=== PATIENT | female | born 1985 | race Caucasian/White ===

== ENCOUNTER 2023-05-07 00:43 | Emergency (ER) | payer BC, SELFPAY ==
--- NOTE | 2023-05-07 | ECG_ITS ---
Test Reason : PALPITATIONS Blood Pressure : / mmHG Vent. Rate : 104 BPM Atrial Rate : 104 BPM P-R Int : 142 ms QRS Dur : 098 ms QT Int : 358 ms P-R-T Axes : 065 042 041 degrees QTc Int : 470 ms Sinus tachycardia RSR' or QR pattern in V1 suggests right ventricular conduction delay Abnormal ECG No previous ECGs available Referred By: Enrique Henriquez Electronically Signed By:MABEL ESQUIVEL
[2023-05-07 00:51] VITALS: BP 146/113; BP 156/110; PULSE 115; PULSE 119; RESP 18; TEMP 36.6; O2SAT 98; BMI 22.1
--- NOTE | 2023-05-07 01:04 | MHC.EDTECH ---
pt changed over with security. belonging in pod locker 8
[2023-05-07 01:19] LABS: Basophils Percent Auto 0.4 % (0-2); Eosinophils Absolute Auto 0.1 X10*3/uL (0.0-0.4); Eosinophils Percent Auto 1.1 % (0-4); Hematocrit 35.3 % (37.0-47.0); Hemoglobin 12.3 g/dl (12.0-16.0); Imm Gran Abs Auto 0.01 X10*3/uL (0.00-0.03); Imm Gran Pct Auto 0.1 % (0.0-0.4); Lymphocytes Absolute Auto 2.8 X10*3/uL (1.2-4.9); Lymphocytes Percent Auto 39.2 % (20-40); MANUAL DIFF FLAG NO; Mean Corpuscular HGB Conc 34.8 g/dl (31.0-35.0); Mean Corpuscular Hemoglobin 31.6 pg (27.0-33.0); Mean Corpuscular Volume 90.7 fL (80.0-98.0); Monocytes Absolute Auto 0.7 X10*3/uL (0.1-1.2); Monocytes Percent Auto 9.3 % (2-11); Neutrophils Absolute Auto 3.5 x10*3/uL (2.0-8.3); Neutrophils Percent Auto 49.9 % (45-73); Platelet Count 237 X10*3/uL (160-400); Red Blood Count 3.89 X10*6/uL (4.20-5.50); Red Cell Distribution Width 12.2 % (11.0-16.0); White Blood Count 7.1 X10*3/uL (4.8-10.8)
[2023-05-07] MEDS: Nicotine 21 MG PATCH.TD24 TRANSDERMA (01:20)
[2023-05-07 01:23] LABS: UPreg QC Valid YES; Urine Pregnancy NEGATIVE (NEGATIVE)
[2023-05-07 01:25] LABS: Appearance Urine Clear; Color Urine Yellow; Glucose Urine UA Negative (Negative); Leukocyte Esterase Urine Negative (Negative); Nitrite Urine Negative (Negative); Specific Gravity - Urine <= 1.005 (1.005-1.025); Urine Blood Negative (Negative); Urine Ketones Negative (Negative); Urine Protein Negative (Neg-Trace)
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
[2023-05-07 01:30] LABS: Amphetamine Screen Urine Not Detected (Not Detect); Bacteria Urine None Seen (None Seen); Barbiturates, Urine Not Detected (Not Detect); Benzodiazepines Screen Urine Not Detected (Not Detect); Cannabinoid Screen Urine Not Detected (Not Detect); Cocaine Screen Urine Not Detected (Not Detect); Fentanyl, urine Not Detected (Not Detect); Hyaline Casts Urine 0-2 /LPF (0-2); Opiate Screen Urine Not Detected (Not Detect); Phencyclidine Screen Urine Not Detected (Not Detect); RBC Urine 0-2 /HPF (0-2); Squamous Epithelial Cell Urine 0-2 /HPF (0-2); WBC Urine 0-5 /HPF (0-5)
[2023-05-07 01:34] LABS: COVID-19 Test Negative (Negative); IDNOW Serial# BCCEAD1C
[2023-05-07 01:38] LABS: Alanine Aminotransferase 65 U/L (0-31); Albumin Level 4.4 g/dL (3.5-5.0); Alkaline Phosphatase 58 U/L (39-117); Anion Gap 15 (12-20); Aspartate Amino Transferase 89 U/L (5-31); Bilirubin Total 0.4 mg/dL (0.0-1.0); Blood Urea Nitrogen 5 mg/dL (9-16); Carbon Dioxide 22 mmol/L (22-29); Chloride 100 mmol/L (96-108); Creatinine Clr Calc Pharmacy 84.6; Estimated Glomerular Filt Rate > 60; Ethanol 318 mg/dL; Glucose Random 99 mg/dL (60-115); Potassium 3.2 mmol/L (3.3-5.1); Sodium 134 mmol/L (135-145)
[2023-05-07] MEDS: Potassium Chloride ER 20 MEQ TAB.ER.PRT 40 MEQ PO (02:12)
[2023-05-07 03:58] VITALS: BP 145/89; PULSE 96; RESP 16; O2SAT 98
== END 2023-05-07 05:02 | disposition home or self-care (01) ==
PROVIDERS: Physician Assistant; Emergency Provider Student in an Organized Health Care Education/Training Program
DX: F10.10 Alcohol abuse, uncomplicated (principal); R00.2 Palpitations; R00.0 Tachycardia, unspecified; Z20.822 Contact with and (suspected) exposure to COVID-19; Z20.828 Contact with and (suspected) exposure to other viral communicable diseases; Z79.899 Other long term (current) drug therapy; Y90.8 Blood alcohol level of 240 mg/100 ml or more
CPT/HCPCS: 80053; 80307; 81001; 81025; 85025; 87635; 93005; 99283; 99285

== ENCOUNTER 2023-10-16 18:27 | Emergency (ER) | payer OTHER, SELFPAY ==
[2023-10-16 18:32] VITALS: BP 137/81; PULSE 97; O2SAT 99
[2023-10-16 18:46] VITALS: BP 140/97; PULSE 98; RESP 16; TEMP 36.3; O2SAT 96; BMI 20.5
--- NOTE | 2023-10-16 18:49 | PC.NURSE ---
patient changed into hospital attire, aware of plans for blood work. resting quietly in room at this time. belongings in locker 2
--- NOTE | 2023-10-16 18:54 | PC.NURSE ---
patient appears to be at rest presently respirations are even and unlabored patient appears in no distress.
[2023-10-16 18:59] LABS: MANUAL DIFF FLAG NO
[2023-10-16 19:05] LABS: Basophils Percent Auto 0.3 % (0-2); Eosinophils Percent Auto 0.8 % (0-4); Hematocrit 37.4 % (37.0-47.0); Hemoglobin 13.2 g/dl (12.0-16.0); Imm Gran Abs Auto 0.01 X10*3/uL (0.00-0.03); Imm Gran Pct Auto 0.3 % (0.0-0.4); Lymphocytes Absolute Auto 1.6 X10*3/uL (1.2-4.9); Mean Corpuscular HGB Conc 35.3 g/dl (31.0-35.0); Mean Corpuscular Hemoglobin 31.9 pg (27.0-33.0); Mean Corpuscular Volume 90.3 fL (80.0-98.0); Mean Platelet Volume 8.3 fL (9.4-12.3); Monocytes Absolute Auto 0.6 X10*3/uL (0.1-1.2); Monocytes Percent Auto 14.9 % (2-11); Neutrophils Absolute Auto 1.7 x10*3/uL (2.0-8.3); Neutrophils Percent Auto 42.7 % (45-73); Platelet Count 164 X10*3/uL (160-400); Red Blood Count 4.14 X10*6/uL (4.20-5.50); White Blood Count 3.9 X10*3/uL (4.8-10.8)
[2023-10-16 19:07] LABS: UPreg QC Valid YES; Urine Pregnancy NEGATIVE (NEGATIVE)
[2023-10-16 19:10] LABS: Appearance Urine Clear; Color Urine Yellow; Glucose Urine UA Negative (Negative); Leukocyte Esterase Urine Negative (Negative); Nitrite Urine Negative (Negative); PH 5.5 (5.0-9.0); Specific Gravity - Urine <= 1.005 (1.005-1.025); UMIC TRIGGER UACC YES; Urine Blood Trace (Negative); Urine Ketones Negative (Negative); Urine Protein Negative (Neg-Trace)
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
[2023-10-16 19:15] LABS: Amphetamine Screen Urine Not Detected (Not Detect); Bacteria Urine None Seen (None Seen); Barbiturates, Urine Not Detected (Not Detect); Benzodiazepines Screen Urine POSITIVE (Not Detect); Cannabinoid Screen Urine Not Detected (Not Detect); Cocaine Screen Urine Not Detected (Not Detect); Fentanyl, urine Not Detected (Not Detect); Hyaline Casts Urine 0-2 /LPF (0-2); Opiate Screen Urine Not Detected (Not Detect); Phencyclidine Screen Urine Not Detected (Not Detect); RBC Urine 0-2 /HPF (0-2); WBC Urine 0-5 /HPF (0-5)
[2023-10-16 19:16] LABS: Alanine Aminotransferase 83 U/L (0-31); Albumin Level 4.4 g/dL (3.5-5.0); Alkaline Phosphatase 73 U/L (39-117); Anion Gap 18 (12-20); Aspartate Amino Transferase 127 U/L (5-31); Bilirubin Total 0.5 mg/dL (0.0-1.0); Blood Urea Nitrogen < 3 mg/dL (9-16); Calcium 9.1 mg/dL (8.4-10.2); Carbon Dioxide 23 mmol/L (22-29); Chloride 97 mmol/L (96-108); Creatinine Clr Calc Pharmacy 93.7; Estimated Glomerular Filt Rate > 60; Ethanol 334 mg/dL; Glucose Random 83 mg/dL (60-115); Potassium 3.4 mmol/L (3.3-5.1); Sodium 135 mmol/L (135-145); Total Protein 7.4 g/dL (6.5-8.0)
[2023-10-16] MEDS: Nicotine 14 MG PATCH.TD24 TRANSDERMA (19:54)
--- NOTE | 2023-10-16 19:57 | PC.NURSE ---
client requested nicotine replacement patch provided. patient expressed desire to dc, clinician made aware of clients wishes, who has indicated to provider of clients desire to dc.
--- NOTE | 2023-10-16 21:17 | MHC.CARE ---
Pt was brought into [facility] via ambulance due to her calling 911 because she was intoxicated. Pt did not present with any safety concerns at this time. She was able to contract for safety and she called her Zachery for a safe ride home. T/W spoke with Zachery and asked about safety concerns and he stated that he has none. Zachery stated that she would never intentionally hurt herself or anyone else. Zachery stated that the pt is a regular heavy drinker and she does this every week. 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 T/W asked about prescribed medications and he stated that she was prescribed the benzo's at one point in her life . He does not know how old they are. The pt and her Zachery have three children 11, 9, 7. There is no DCF involvement in their lives at this time. It was agreed that the pt could be discharged to her as there are no safety concerns at this time.
== END 2023-10-16 22:07 | disposition home or self-care (01) ==
PROVIDERS: Emergency Provider Emergency Medicine
DX: F41.1 Generalized anxiety disorder (principal); F43.0 Acute stress reaction; F10.129 Alcohol abuse with intoxication, unspecified; Y90.8 Blood alcohol level of 240 mg/100 ml or more; Z79.899 Other long term (current) drug therapy
CPT/HCPCS: 36415; 80053; 80307; 81001; 81025; 85025; 99283

== ENCOUNTER 2025-04-05 21:16 | Inpatient (IN) | payer SELFPAY ==
--- NOTE | 2025-04-05 | ECG_ITS ---
Test Reason : seizure, etoh withdrawal Blood Pressure : */* mmHG Vent. Rate : 135 BPM Atrial Rate : 138 BPM P-R Int : 128 ms QRS Dur : 84 ms QT Int : 378 ms P-R-T Axes : 70 60 65 degrees QTcB Int : 567 ms Artifact in tracing Normal sinus rhythm Cannot rule out Anterior infarct , age undetermined Abnormal ECG When compared with ECG of 07-May-2023 01:18, No significant changes seen Referred By: Generic ED Physician Electronically Signed By: TREVON PEREZ
--- NOTE | ~2025-04-05 | CT_ITS ---
CLINICAL HISTORY: facial trauma, EtOH CT maxillofacial without contrast Comparison: None provided Findings: No acute fractures. Temporomandibular joints are intact. Minimal mucosal thickening of the right maxillary sinus. Other paranasal sinuses are clear. Orbits normal. Visualized intracranial contents are within normal limits. No foreign bodies. Scalp swelling over the midline forehead. IMPRESSION: No acute fracture deformity. This document has been electronically signed by: Everardo Soliz MD on 04/05/2025 23:42:14
--- NOTE | ~2025-04-05 | CT_ITS ---
CLINICAL HISTORY: facial trauma CT head without contrast Comparison: None provided Findings: No intra-axial mass, midline shift, hydrocephalus, or acute hemorrhage. No significant atrophy-like change or white matter disease. The visualized paranasal sinuses and mastoid air cells are normal. The orbits are unremarkable. Midline forehead scalp swelling. No skull fracture. IMPRESSION: 1. No acute intracranial findings. This document has been electronically signed by: Everardo Soliz MD on 04/05/2025 23:44:08
--- NOTE | ~2025-04-05 | CT_ITS ---
CLINICAL HISTORY: facial trauma, EtOH CT cervical spine without contrast Comparison: None provided Findings: Vertebral alignment is within normal limits. Mild degenerative change. Facet arthrosis on the left at C2-3. No acute fractures or dislocations. No acute findings on limited view of the intracranial contents. Soft tissues of the neck are normal. Lung apices are clear. Cervical straightening which may be due to patient positioning or muscular spasm. IMPRESSION: No acute cervical spine fracture. This document has been electronically signed by: Everardo Soliz MD on 04/05/2025 23:41:41
[2025-04-05 21:19] VITALS: BP 148/94; PULSE 122; O2SAT 98; BMI 23.0
--- NOTE | 2025-04-05 22:08 | ED.GENADULT ---
HPI - General Adult General Chief complaint: Seizure Stated complaint: seizure Time Seen by Provider: 04/05/25 21:40 Source: patient, EMS, RN notes reviewed and old records reviewed Mode of arrival: EMS Limitations: altered mental status History of Present Illness ED Provider: Dr. Denia Wetzel HPI narrative: 31-year-old female with history of alcohol use disorder presenting after an apparent seizure that occurred at home immediately prior to arrival. EMS reports they were called to the home by the patient's . Evidently her children heard a thud and found her seizing on the ground. Seizure reportedly lasted a couple of minutes. She has a contusion to the forehead and had been vomiting prior to the seizure. reports alcohol use today. Patient is unable to give any information secondary to her clinical condition. She has been medicated with Versed after she became agitated saying that she thought she might have another seizure. History of daily alcohol use. Unable to obtain further information at this time. Related Data Allergies Allergy/AdvReac Type Severity Reaction Status Date / Time No Known Allergies Allergy Verified 04/05/25 21:32 Review of Systems Review of Systems: Yes Unobtainable due to mental status [facility] Past Medical History [facility] Narrative: Daily alcohol use Source: unable to obtain, old records reviewed and nursing notes reviewed Social History Social History Alcohol intake: current Alcohol intake frequency: 3 or more drinks per day Alcohol type: beer, wine and hard liquor Smoked in Last 30 Days: Yes Use of substances other than those prescribed or required for medical reasons: No Do you have a plan to hurt others: No Plan Physical Exam ED Exam Exam: GENERAL: Appears intoxicated, GCS 13, eyes open to voice, slurred speech, no acute distress. SKIN: Normal skin color for ethnicity, warm, dry, no rashes noted. HEENT: Normocephalic, forehead contusion, no bogginess to the scalp, no raccoon's eyes or del cid signs, superficial abrasion overlying the contusion, nasal contusion, no blood in the nares, no stridor, posterior oropharynx nonerythematous, dentition intact, EOMI, pupils are 4 mm bilaterally, reactive to light. NECK: Soft, supple, no step-offs, no deformities, no lymphadenopathy. CHEST: Heart regular tachycardia, no murmurs, symmetric chest rise and fall. PULMONARY: Clear to auscultation bilaterally, diminished at the bases, no labored breathing, no wheezes/rhales/rhonchi. ABDOMINAL: Soft, nondistended, positive bowel sounds in all quadrants. : Deferred. MUSCULOSKELETAL: Normal tone, full range of motion, no deformities, no peripheral edema. NEURO: GCS 13, eyes open to voice, slightly slurred speech, CN II through XII intact, equal strength and sensation bilateral upper and lower extremities, no focal neurologic deficits. PSYCHIATRIC: Flat affect, poor eye contact. Vital Signs: Vital Signs - 24 hr 04/05/25 23:31 Pulse Rate 116 H Blood Pressure 124/85 BMI result Body Mass Index 23.0 Medications Administered Generic Name Dose Route Start Last Admin Trade Name Freq PRN Reason Stop Dose Admin Magnesium Sulfate 2 gm in 50 mls @ 25 mls/hr 04/05/25 23:34 04/05/25 23:42 Magnesium Sulfate/H2o IV 04/06/25 01:33 25 mls/hr ONCE ONE Administration Discontinued Medications Generic Name Dose Route Start Last Admin Trade Name Freq PRN Reason Stop Dose Admin Midazolam HCl 5 mg 04/05/25 21:42 04/05/25 21:45 Midazolam Hcl 5 Mg/Ml Vial IVPUSH 04/05/25 21:43 5 mg ONCE ONE Administration Medical Decision Making Medical Decision Making [facility] Narrative: Patient presents today with a chief complaint of altered mental status. Differential diagnosis for AMS is incredibly broad and includes postictal state/seizure, infection, intracranial process such as hemorrhage, stroke or mass, electrolyte abnormality, hypercarbia, hypoxia, toxic encephalopathy, among many others. Broad-based workup was initiated to further evaluate the etiology of patient's symptoms based on the above exam and history. 1:00 AM 04/06/2025 (Dr. Denia Wetzel, Len.Suleiman.) patient reporting to RN that she does in fact want to seek treatment for alcohol detox. Sodium level, magnesium level, seizure activity today, we will initiate phenobarbital protocol, admit for further care and evaluation, alcohol detox hyponatremia and hypomagnesemia. Differential Diagnosis Differential Diagnoses: The differential diagnosis associated with the presentation includes (as above) Admission/Observation Consideration of admission/observation: Escalation of care including admission/observation considered Consult Healthcare Provider Management of the patient was discussed with: Hospitalist Lab Data MDM Lab Attestation statement: I reviewed the patient's lab results. 04/05/25 22:39 04/05/25 22:39 Labs: Lab Results 04/05/25 04/05/25 04/05/25 Range/Units 22:39 22:45 23:33 WBC 7.7 (4.8-10.8) X10*3/uL RBC 3.83 L (4.20-5.50) X10*6/uL Hgb 10.5 L D (12.0-16.0) g/dl Hct 28.6 L D (37.0-47.0) % MCV 74.7 L (80.0-98.0) fL MCH 27.4 (27.0-33.0) pg MCHC 36.7 H (31.0-35.0) g/dl RDW 15.4 (11.0-16.0) % Plt Count 122 L D (160-400) X10*3/uL MPV 8.4 L (9.4-12.3) fL Immature Gran % (Auto) 0.5 H (0.0-0.4) % Neut % (Auto) 81.2 H (45-73) % Lymph % (Auto) 11.8 L (20-40) % [place] % (Auto) 6.1 (2-11) % Eos % (Auto) 0.3 (0-4) % Baso % (Auto) 0.1 (0-2) % Lymph # (Auto) 0.9 L (1.2-4.9) X10*3/uL [place] # (Auto) 0.5 (0.1-1.2) X10*3/uL Eos # (Auto) 0.0 (0.0-0.4) X10*3/uL Baso # (Auto) 0.0 (0.0-0.2) X10*3/uL Abs Immat Gran (auto) 0.04 H (0.00-0.03) X10*3/uL Absolute Neuts (auto) 6.3 (2.0-8.3) x10*3/uL Absolute Nucleated RBC 0.000 (0.0-0.012) X10*3/uL Nucleated RBC % (auto) 0.0 (0.0-0.2) /100WBC VBG pH 7.48 H (7.32-7.43) VBG pCO2 36 mmHg VBG pO2 63 mmHg VBG HCO3 27 H (22-26) mmol/L VBG O2 Saturation 89.0 % VBG Base Excess 4.3 mmol/L Sodium 120 L* (135-145) mmol/L Potassium 3.2 L (3.3-5.1) mmol/L Chloride 87 L (96-108) mmol/L Carbon Dioxide 22 (22-29) mmol/L Anion Gap 14 (12-20) BUN 3 L (9-16) mg/dL Creatinine 0.59 (0.5-1.4) mg/dL Estim Creat Clear Calc 106.9 Estimated GFR > 60 Random Glucose 107 (60-115) mg/dL Calcium 8.3 L D (8.4-10.2) mg/dL Magnesium 1.4 L* (1.6-2.6) mg/dL Total Bilirubin 1.4 H (0.0-1.0) mg/dL AST 33 H (5-31) U/L ALT 19 (0-31) U/L Alkaline Phosphatase 56 (39-117) U/L Ammonia 25 (13-55) umol/L Total Protein 6.5 (6.5-8.0) g/dL Albumin 4.3 (3.5-5.0) g/dL Beta HCG, Quant < 2 mIU/mL Salicylates < 5.0 L (15-30) mg/dL Urine Opiates Screen Not Detected (Not Detect) Ur Buprenorphine Scrn Not Detected (Not Detect) ng/mL Ur Oxycodone Screen Not Detected (Not Detect) ng/mL Urine Methadone Screen Not Detected (Not Detect) ng/mL Urine Fentanyl Screen Not Detected (Not Detect) Acetaminophen < 3 (<30) mcg/mL Ur Barbiturates Screen Not Detected (Not Detect) Ur Phencyclidine Scrn Not Detected (Not Detect) Ur Amphetamines Screen Not Detected (Not Detect) U Benzodiazepines Scrn POSITIVE H (Not Detect) Urine Cocaine Screen Not Detected (Not Detect) U Marijuana (THC) Screen Not Detected (Not Detect) Ethyl Alcohol < 10 mg/dL Independent Interpretation I performed an independent interpretation of an: EKG Interpretation: My independent interpretation of the ECG reveals normal sinus tachycardia with rate of 130, normal axis, QTC 567, no ST elevations or depressions to suggest ischemic changes, artifact in V2, aside from rate relatively unchanged from previous on 05/07/2023 Radiology Impression Discussion of test interpretation with radiology: I have reviewed the radiologist's reading. Radiologist Impression: CT head without contrast Comparison: None provided Findings: No intra-axial mass, midline shift, hydrocephalus, or acute hemorrhage. No significant atrophy-like change or white matter disease. The visualized paranasal sinuses and mastoid air cells are normal. The orbits are unremarkable. Midline forehead scalp swelling. No skull fracture. IMPRESSION: 1. No acute intracranial findings. This document has been electronically signed by: Everardo Soliz MD on 04/05/2025 23:44:08 CT maxillofacial without contrast Comparison: None provided Findings: No acute fractures. Temporomandibular joints are intact. Minimal mucosal thickening of the right maxillary sinus. Other paranasal sinuses are clear. Orbits normal. Visualized intracranial contents are within normal limits. No foreign bodies. Scalp swelling over the midline forehead. IMPRESSION: No acute fracture deformity. This document has been electronically signed by: Everardo Soliz MD on 04/05/2025 23:42:14 CT cervical spine without contrast Comparison: None provided Findings: Vertebral alignment is within normal limits. Mild degenerative change. Facet arthrosis on the left at C2-3. No acute fractures or dislocations. No acute findings on limited view of the intracranial contents. Soft tissues of the neck are normal. Lung apices are clear. Cervical straightening which may be due to patient positioning or muscular spasm. IMPRESSION: No acute cervical spine fracture. This document has been electronically signed by: Everardo Soliz MD on 04/05/2025 23:41:41 Independent Historian Clinical information obtained from an independent historian. History obtained from or confirmed by: EMS Chronic Conditions Patient?s care impacted by: Other (alcoholism) Social Determinants Patient?s care significantly limited by Social Determinants of Health including: Alcoholism and drug addiction in family and Problems related to primary support group Critical Care Time Critical Care Time Critical Care Time: Yes Total Critical Care Time: 39 Attestation: CRITICAL CARE TIME: 39 minutes of critical care time was spent in direct patient care at the bedside or in the immediate area with this patient. Critical care was necessary to treat or prevent imminent or life-threatening deterioration of the following conditions hyponatremia, hypomagnesemia, alcohol withdrawal due to alcohol use disorder. This patient is high risk for decompensation and/or . This time was spent assessing and managing the patient, interpreting labs and imaging, coordinating care with other medical providers, gathering history from either the patient, their representatives, EMS or chart review, and discussing management with admitting team. Discharge Plan Discharge Clinical Impression: Alcohol withdrawal seizure, Hyponatremia, Hypomagnesemia Patient Disposition: Admitted As Inpatient Print Language: Bulgarian
[2025-04-05 22:44] LABS: MANUAL DIFF FLAG NO
[2025-04-05 22:45] LABS: Hematocrit 28.6 % (37.0-47.0); Hemoglobin 10.5 g/dl (12.0-16.0); Imm Gran Abs Auto 0.04 X10*3/uL (0.00-0.03); Imm Gran Pct Auto 0.5 % (0.0-0.4); Lymphocytes Absolute Auto 0.9 X10*3/uL (1.2-4.9); Mean Corpuscular HGB Conc 36.7 g/dl (31.0-35.0); Mean Corpuscular Hemoglobin 27.4 pg (27.0-33.0); Mean Corpuscular Volume 74.7 fL (80.0-98.0); NRBC Abs Auto 0.000 X10*3/uL (0.0-0.012); NRBC Pct Auto 0.0 /100WBC (0.0-0.2); Platelet Count 122 X10*3/uL (160-400); Red Blood Count 3.83 X10*6/uL (4.20-5.50); White Blood Count 7.7 X10*3/uL (4.8-10.8)
[2025-04-05 22:49] LABS: VBG HCO3 27 mmol/L (22-26); VBG O2 % Saturation 89.0 %
[2025-04-05 22:50] LABS: Venous Blood Gas Refer to POC result
[2025-04-05 22:54] LABS: Ammonia 25 umol/L (13-55)
[2025-04-05 23:10] LABS: Acetaminophen LAB < 3 mcg/mL (<30); Salicylate < 5.0 mg/dL (15-30)
[2025-04-05 23:13] LABS: Alanine Aminotransferase 19 U/L (0-31); Albumin Level 4.3 g/dL (3.5-5.0); Alkaline Phosphatase 56 U/L (39-117); Anion Gap 14 (12-20); Aspartate Amino Transferase 33 U/L (5-31); Blood Urea Nitrogen 3 mg/dL (9-16); Calcium 8.3 mg/dL (8.4-10.2); Carbon Dioxide 22 mmol/L (22-29); Chloride 87 mmol/L (96-108); Creatinine Clr Calc Pharmacy 106.9; Estimated Glomerular Filt Rate > 60; Magnesium 1.4 mg/dL (1.6-2.6); Potassium 3.2 mmol/L (3.3-5.1); Sodium 120 mmol/L (135-145); Total Protein 6.5 g/dL (6.5-8.0)
[2025-04-05 23:31] VITALS: BP 124/85; PULSE 116
[2025-04-05] MEDS: Magnesium Sulfate/H2O 2 GM/50 ML PIGGYBACK IV (23:42)
[2025-04-05 23:51] LABS: Cannabinoid Screen Urine Not Detected (Not Detect)
--- NOTE | 2025-04-06 01:12 | PM.IMHP ---
History of Present Illness Date of Service: 04/06/25 Chief Complaint: seizure 39-year-old female with a past medical history of anxiety, alcohol use disorder presented to the hospital with a chief complaint of seizure episode. Patient mentioned that she was at home and suddenly had a seizure and fell onto the floor hit her head. Witnessed by the family. Subsequently brought her to the hospital for further evaluation. Denies any tongue biting or urinary incontinence. Reports that she has been drinking alcohol on a daily basis and has been trying to cut down too slowly. It. Denies any headaches or blurry visions. Denies any neck pain or back pain. Denies any numbness tingling or focal weakness. Reports that she has been having nausea and vomiting over the past few days and has been having abdominal discomfort. But currently denies any abdominal pain at the time of my interview. Denies any urinary symptoms. Review of all other systems is negative except mentioned above ER course: Per ER team, patient exam was benign; musculoskeletal exam benign; patient initially came in with C-collar; CT head and CT C-spine showed no acute findings; on labs noted have sodium levels of 120. Patient mentating well. Patient is started on phenobarbital protocol. [facility] Social History Alcohol intake: current Alcohol intake frequency: 3 or more drinks per day Alcohol type: beer, wine and hard liquor Meds Allergies Allergy/AdvReac Type Severity Reaction Status Date / Time No Known Allergies Allergy Verified 04/05/25 21:32 Active Medications: Current Medications Magnesium Sulfate (Magnesium Sulfate/H2o) 2 gm in 50 mls @ 25 mls/hr IV ONCE ONE Stop: 04/06/25 01:33 Last Admin: 04/05/25 23:42 Dose: 25 mls/hr Pharmacy Consult (Consult Rx Etoh Phenob Im/Po) 1 each MISCELLANE ONCE PRN; Protocol PRN Reason: Consult order Physical Exam Vital Signs and Narrative: Vital Signs: Last Vital Signs Pulse 116 H 04/05/25 23:31 BP 124/85 04/05/25 23:31 BMI result Body Mass Index 23.0 Gen: Appears be in no acute distress HEENT: NCAT, Moist mucosa. Abrasions noted on the forehead secondary to the fall. Pulmonary: Vesicular breath sounds, fair air entry CVS: Normal S1-S2 Abdomen: BS+, Soft, Nontender Extremities: Warm well perfused Neuro: Alert and awake. Results Labs 04/05/25 22:39 04/05/25 22:39 Labs: Laboratory Results - last 24 hr 04/05/25 04/05/25 04/05/25 22:39 22:45 23:33 MCV 74.7 L MCH 27.4 MCHC 36.7 H RDW 15.4 Plt Count 122 L D MPV 8.4 L Immature Gran % (Auto) 0.5 H Neut % (Auto) 81.2 H Lymph % (Auto) 11.[address] [place] % (Auto) 6.1 Eos % (Auto) 0.3 Baso % (Auto) 0.1 Lymph # (Auto) 0.[address] [place] # (Auto) 0.5 Eos # (Auto) 0.0 Baso # (Auto) 0.0 Abs Immat Gran (auto) 0.04 H Absolute Neuts (auto) 6.3 Absolute Nucleated RBC 0.000 Nucleated RBC % (auto) 0.0 VBG pH 7.48 H VBG pCO2 36 VBG pO2 63 VBG HCO3 27 H VBG O2 Saturation 89.0 VBG Base Excess 4.3 Anion Gap 14 Estim Creat Clear Calc 106.9 Estimated GFR > 60 Random Glucose 107 Calcium 8.3 L D Magnesium 1.4 L* Total Bilirubin 1.4 H AST 33 H ALT 19 Alkaline Phosphatase 56 Ammonia 25 Total Protein 6.5 Albumin 4.3 Beta HCG, Quant < 2 Salicylates < 5.0 L Urine Opiates Screen Not Detected Ur Buprenorphine Scrn Not Detected Ur Oxycodone Screen Not Detected Urine Methadone Screen Not Detected Urine Fentanyl Screen Not Detected Acetaminophen < 3 Ur Barbiturates Screen Not Detected Ur Phencyclidine Scrn Not Detected Ur Amphetamines Screen Not Detected U Benzodiazepines Scrn POSITIVE H Urine Cocaine Screen Not Detected U Marijuana (THC) Screen Not Detected Ethyl Alcohol < 10 Assessment and Plan (1) Hyponatremia: Status: Acute Plan 39-year-old female with a past medical history of anxiety, alcohol use disorder presented to the hospital with a chief complaint of seizure episode. Seizure: Alcohol use disorder: Likely in setting of alcohol withdrawal as patient is trying to cut down on alcohol drinking. Hyponatremia also in the differential. 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 Ativan p.r.n. for seizure Hyponatremia: Likely low-salt good stead. We will give the patient on D5 NS at 50 cc/hour. Serial BMP. Nephrology consult. Thrombocytopenia: Platelets were noted to be 122 on presentation. No signs of bleeding. Will monitor. GI prophylaxis: Ppi DVT prophylaxis: SubQ heparin Code status: Full code Quality Stroke Does the patient have a stroke diagnosis?: No VTE Prior VTE?: No VTE Risk Level:: Medical - moderate - high VTE Device Contraindication: Treatment Not Indicated VTE Drug Contraindication: N/A - Med Ordered
[2025-04-06 01:38] LABS: Osmolality, Serum 246 mosm/kg (281-305)
[2025-04-06 01:51] VITALS: BP 139/90; PULSE 109; RESP 21
[2025-04-06] MEDS: PHENobarbitaL sodium 130 MG/ML IM ONCE 250 MG IM (01:58)
[2025-04-06] MEDS: PHENobarbitaL sodium 65 MG/ML VIAL Q3Hx2 187 MG IM ×2 (05:33→08:11)
[2025-04-06 05:36] VITALS: BP 124/85; PULSE 136; RESP 19
--- NOTE | 2025-04-06 08:21 | PC.NURSE ---
pt was sleeping, woke to stimulus, upon waking patients HR increases to 130s, CIWA score was 12, upon this nurse going to get pts medication and returning to room, pt was found oob searching for her wedding band- this nurse told patient it was on her hand. She stood staring at her hands. Upon medicating patient with PO meds she had difficulty following commands, complaining of a headache. Pt also medicated with phenobarb per order, pt was moved to room 17 for staff to keep a closer watch over the patient- seziure precautions/fall precautions currently in place. hospitalist provider at bedside, call segura within reach, plan of care ongoing.
--- NOTE | 2025-04-06 08:38 | PHA.MEDREC ---
Addendum entered by Ross Tuttle PharmD 04/06/25 08:47: reviewed Original Note: Pharmacy Consult ? Medication Reconciliation Pharmacy has completed the medication reconciliation. Spoke with pt and she confirmed she still has Hydroxyzine cap and Clonidine tabs as needed for Anxiety/sleep and Gabapentin caps as needed for pain at home.
--- NOTE | 2025-04-06 09:01 | MHC.EDTECH ---
BELONGINGS (1 BAG) PUT IN [place] CLOSET BY Ty SOLORZANO @ THIS TIME
--- NOTE | 2025-04-06 09:40 | PC.NURSE ---
labs dr you called asking about labs not being drawn for early am, this nurse called phlebotomy and apparently the patient refused labs, this nurse was unaware the patient refused as nursing was not notified of this. This nurse requested phlebotomy to come draw the patient as it is important for her care and is at bedside so wont refuse. phlebotomy came to bedside, labs drawn per order and Dr. You was notified of the draw. Additionally, neurology came to see patient- pt has not had any seizure activity so far. pt oob with assist to bedside commode hat in commode to obtaine urine
[2025-04-06 09:43] LABS: MANUAL DIFF FLAG NO
[2025-04-06 09:47] LABS: Hematocrit 34.6 % (37.0-47.0); Hemoglobin 12.2 g/dl (12.0-16.0); Imm Gran Abs Auto 0.03 X10*3/uL (0.00-0.03); Imm Gran Pct Auto 0.3 % (0.0-0.4); Lymphocytes Absolute Auto 0.9 X10*3/uL (1.2-4.9); Mean Corpuscular HGB Conc 35.3 g/dl (31.0-35.0); Mean Corpuscular Hemoglobin 27.3 pg (27.0-33.0); Mean Corpuscular Volume 77.4 fL (80.0-98.0); NRBC Abs Auto 0.000 X10*3/uL (0.0-0.012); NRBC Pct Auto 0.0 /100WBC (0.0-0.2); Platelet Count 168 X10*3/uL (160-400); Red Blood Count 4.47 X10*6/uL (4.20-5.50); White Blood Count 9.0 X10*3/uL (4.8-10.8)
[2025-04-06 09:52] VITALS: BP 110/73; PULSE 114; RESP 16; TEMP 36.8; O2SAT 96
--- NOTE | 2025-04-06 09:54 | PC.NURSE ---
vape/phone is taking the patients vape and cell phone home with him
--- NOTE | 2025-04-06 09:56 | PC.NURSE ---
tylenol administration patient is c/o 04/12 headache, tylenol is ordered with a pain scale of 1-2, Dr. You was notified of patients headache and that it is outside the tylenol pain scale to administer it. Dr. You gave the OK to give the patient the tylenol for her headache.
--- NOTE | 2025-04-06 09:58 | PM.NEUROCN ---
History of Present Illness Data of Consult Service Date: 04/06/25 Primary Care Provider: None Physician HPI Reason for consult: Generalized convulsion 39 years old woman with long history of alcohol abuse specially so during last 2-3 years was still drinking alcohol. She was in usual state of health when her heard a noise went to her room and found her on the floor shaking all over. It lasted for about 30 seconds and then she was sleepy and confused. She was brought to hospital as she also got bruises on her face. She did not remember the event. There was no previous history of similar episodes. She has not tried any new medicine or drug other than alcohol. Review of Systems Review of Systems: No recent cold or flu-like illness PMFSH Social History Social History Alcohol intake: current Alcohol intake frequency: 3 or more drinks per day Alcohol type: beer, wine and hard liquor Patient Tobacco Use Status: Current everyday Tobacco user Smoked in Last 30 Days: Yes Use of substances other than those prescribed or required for medical reasons: No Advance Directives: No Advance Directives Information Provided: No Do you have a plan to hurt others: No Plan Nutrition Risks: No Nutritional Risk Meds Allergies Allergy/AdvReac Type Severity Reaction Status Date / Time No Known Allergies Allergy Verified 04/05/25 21:32 Active Medications: Current Medications Acetaminophen (Acetaminophen 325 Mg Tablet) 650 mg PO Q6H PRN PRN Reason: Pain, Mild 1-3,fever,headache Calcium Carbonate (Calcium Carbonate 750 Mg Tab.Chew) 750 mg PO Q4H PRN PRN Reason: Heartburn Folic Acid (Folic Acid 1 Mg Tablet) 1 mg PO DAILY [facility] Stop: 04/09/25 08:59 Last Admin: 04/06/25 08:01 Dose: 1 mg Heparin Sodium (Porcine) (Heparin Sodium,Porcine 5,000 Unit/Ml Vial) 5,000 unit SUBCUT Q8H [facility] Last Admin: 04/06/25 08:01 Dose: 5,000 unit Dextrose/Sodium Chloride (D5ns) 1,000 mls @ 50 mls/hr IVCONT .Q20H [facility] Last Admin: 04/06/25 01:59 Dose: 50 mls/hr Lorazepam (Lorazepam 2 Mg/Ml Vial) 1 mg IVPUSH Q4H PRN PRN Reason: Seizures Magnesium Hydroxide (Milk Of Magnesia 30 Ml Oral.Susp) 30 ml PO DAILY PRN PRN Reason: Constipation Melatonin (Melatonin 3 Mg Tablet) 6 mg PO BEDTIME PRN PRN Reason: Insomnia Multivitamins/Vitamin C (Multivitamin Tablet) 1 tab PO DAILY [facility] Stop: 04/09/25 08:59 Last Admin: 04/06/25 08:01 Dose: 1 tab Nicotine (Nicotine 14 Mg Patch.Td24) 14 mg TRANSDERMA DAILY [facility] Pantoprazole Sodium (Pantoprazole Sodium 40 Mg/10 Ml Vial) 40 mg IVPUSH DAILY@0630 [facility] Last Admin: 04/06/25 06:28 Dose: 40 mg Pharmacy Consult (Consult Rx Etoh Phenob Im/Po) 1 each MISCELLANE ONCE PRN; Protocol PRN Reason: Consult order Phenobarbital (Phenobarbital 15 Mg Tablet) 45 mg PO BID [facility] Stop: 04/07/25 21:01 Phenobarbital (Phenobarbital 15 Mg Tablet) 15 mg PO BID [facility] Stop: 04/09/25 21:01 Phenobarbital (Phenobarbital 15 Mg Tablet) 15 mg PO DAILY [facility] Stop: 04/11/25 09:01 Senna (Sennosides 8.6 Mg Tablet) 17.2 mg PO BEDTIME [facility] Sodium Chloride (0.9 % Sodium Chloride Flush 3 Ml Syringe) 3 ml IVFLUSH QSHIFT [facility] Last Admin: 04/06/25 08:01 Dose: Not Given Thiamine HCl (Thiamine Hcl 100 Mg Tablet) 100 mg PO DAILY [facility] Stop: 04/09/25 08:59 Last Admin: 04/06/25 08:01 Dose: 100 mg Home Medications ?Medication ?Instructions ?Recorded ?Confirmed ?Last Taken ?Type clonidine HCl 0.1 mg tablet 0.1 mg PO TID PRN Anxiety/Sleep 04/06/25 04/06/25 Unknown History gabapentin 300 mg capsule 300 mg PO TID PRN Pain 04/06/25 04/06/25 Unknown History hydroxyzine pamoate 50 mg capsule 50 mg PO TID PRN Anxiety/Sleep 04/06/25 04/06/25 Unknown History multivitamin 1 tab PO DAILY 04/06/25 04/06/25 04/05/25 History Physical Exam Vital Signs: Vital Signs: Last Vital Signs Temp 98.3 F 04/06/25 09:52 Pulse 114 H 04/06/25 09:52 Resp 16 04/06/25 09:52 BP 110/73 04/06/25 09:52 Pulse Ox 96 04/06/25 09:52 O2 Del Method Room Air 04/06/25 09:52 BMI result Body Mass Index 23.0 Neuro: Other: She is alert and awake with normal spontaneity of speech fluency comprehension and somewhat flat affect. Face is symmetrical. There are multiple bruises on the face. There was no focal arm or leg weakness. [id number] testing did not reveal any significant abnormality. Plantars are flexor. Speech is normal. Results Labs 04/05/25 22:39 04/05/25 22:39 Labs: Short CBC 04/05/25 Range/Units 22:39 WBC 7.7 (4.8-10.8) X10*3/uL Hgb 10.5 L D (12.0-16.0) g/dl Hct 28.6 L D (37.0-47.0) % Plt Count 122 L D (160-400) X10*3/uL BMP 04/05/25 22:39 Sodium 120 L* Potassium 3.2 L Chloride 87 L Carbon Dioxide 22 BUN 3 L Creatinine 0.59 Calcium 8.3 L D Liver Function 04/05/25 Range/Units 22:39 Total Bilirubin 1.4 H (0.0-1.0) mg/dL AST 33 H (5-31) U/L ALT 19 (0-31) U/L Alkaline Phosphatase 56 (39-117) U/L Albumin 4.3 (3.5-5.0) g/dL Head CT revealed mild cerebellar atrophy. Assessment and Plan (1) Generalized seizure: Status: Acute 39 years old woman with long history of heavy alcohol use presented with an episode of generalized convulsion witnessed by her . She sustained few minor bruises or face related to this episode. Her serum sodium was [address] did not reveal any acute abnormality. Mild cerebellar atrophy probably related to alcohol use was noted. At this time my recommendation is to put her on alcohol withdrawal protocol, slowly treat hyponatremia to avoid any further complications, obtain an EEG, and treat her with thiamine folate and B complex vitamins. She was advised to continue seeing her therapist and counselor, consider stopping alcohol as it already has started to cause further trouble, and not drive for now or be involved in activity that could put her life in danger such as sitting in a soaking tub alone or swimming alone. Procedures Date of Service Date of Service: 04/06/25
--- NOTE | 2025-04-06 10:00 | P.CONNP_ITS ---
History of Present Illness Reason for Consult Consult date: 04/06/25 Chief Complaint Chief complaint: Seizure History of Present Illness Narrative: 39 y/o female with a medical history of anxiety and alcohol use disorder (reports she's been through detox multiple times). Presetned 04/06 with seizure, fell and hit head at home. Sodium 120 on 04/05 at 22:39 Nephrology consulted for hyponatremia. patient reports had been drinking a lot of alcohol daily- states she can't remember how much but was drinking beer, wine and liquor. States tried to detox on her own at home but was unable to do so. states she had been vomiting and had diarrhea while attempting to detox at home for the last few days. serum sodium 120 on 22:39 on 04/05 this a.m. 04/06 at 9:38 serum sodium 131. urine sodium <20 on arrival. Urine osm pending. patient reports still feels very tired, nauseous, though vomiting and diarrhea have subsided. also reports headache. Review of Systems Constitutional: Reports fatigue, Reports headache(s) and Reports malaise Reports headache(s) Cardiovascular: Denies chest pain, Denies leg edema, Denies lightheadedness and Denies dyspnea Respiratory: Denies dyspnea Gastrointestinal: Denies abdominal pain, Denies diarrhea, Reports nausea and Denies vomiting Genitourinary: Reports no additional female genitourinary complaints Musculoskeletal: Denies back pain and Denies arthralgias Comments: facial pain- hit head/face with fall/seizure. Comments: facial abrasion/bruising Reports headache(s) Endocrine: Reports fatigue PMFSH Social History Social History Alcohol intake: current Alcohol intake frequency: 3 or more drinks per day Alcohol type: beer, wine and hard liquor Patient Tobacco Use Status: Current everyday Tobacco user Smoked in Last 30 Days: Yes Use of substances other than those prescribed or required for medical reasons: No Advance Directives: No Advance Directives Information Provided: No Do you have a plan to hurt others: No Plan Nutrition Risks: No Nutritional Risk Meds Allergies Allergy/AdvReac Type Severity Reaction Status Date / Time No Known Allergies Allergy Verified 04/05/25 21:32 Active Medications: Current Medications Acetaminophen (Acetaminophen 325 Mg Tablet) 650 mg PO Q6H PRN PRN Reason: Pain, Mild 1-3,fever,headache Last Admin: 04/06/25 10:20 Dose: 650 mg Calcium Carbonate (Calcium Carbonate 750 Mg Tab.Chew) 750 mg PO Q4H PRN PRN Reason: Heartburn Folic Acid (Folic Acid 1 Mg Tablet) 1 mg PO DAILY [facility] Stop: 04/09/25 08:59 Last Admin: 04/06/25 08:01 Dose: 1 mg Heparin Sodium (Porcine) (Heparin Sodium,Porcine 5,000 Unit/Ml Vial) 5,000 unit SUBCUT Q8H [facility] Last Admin: 04/06/25 08:01 Dose: 5,000 unit Dextrose/Sodium Chloride (D51/2ns) 1,000 mls @ 100 mls/hr IVCONT .Q10H [facility] Last Admin: 04/06/25 10:56 Dose: 100 mls/hr Lorazepam (Lorazepam 2 Mg/Ml Vial) 1 mg IVPUSH Q4H PRN PRN Reason: Seizures Magnesium Hydroxide (Milk Of Magnesia 30 Ml Oral.Susp) 30 ml PO DAILY PRN PRN Reason: Constipation Melatonin (Melatonin 3 Mg Tablet) 6 mg PO BEDTIME PRN PRN Reason: Insomnia Multivitamins/Vitamin C (Multivitamin Tablet) 1 tab PO DAILY [facility] Stop: 04/09/25 08:59 Last Admin: 04/06/25 08:01 Dose: 1 tab Nicotine (Nicotine 14 Mg Patch.Td24) 14 mg TRANSDERMA DAILY [facility] Last Admin: 04/06/25 10:20 Dose: 14 mg Pantoprazole Sodium (Pantoprazole Sodium 40 Mg/10 Ml Vial) 40 mg IVPUSH DAILY@0630 [facility] Last Admin: 04/06/25 06:28 Dose: 40 mg Pharmacy Consult (Consult Rx Etoh Phenob Im/Po) 1 each MISCELLANE ONCE PRN; Protocol PRN Reason: Consult order Phenobarbital (Phenobarbital 15 Mg Tablet) 45 mg PO BID [facility] Stop: 04/07/25 21:01 Phenobarbital (Phenobarbital 15 Mg Tablet) 15 mg PO BID [facility] Stop: 04/09/25 21:01 Phenobarbital (Phenobarbital 15 Mg Tablet) 15 mg PO DAILY [facility] Stop: 04/11/25 09:01 Senna (Sennosides 8.6 Mg Tablet) 17.2 mg PO BEDTIME [facility] Sodium Chloride (0.9 % Sodium Chloride Flush 3 Ml Syringe) 3 ml IVFLUSH QSHIFT [facility] Last Admin: 04/06/25 08:01 Dose: Not Given Thiamine HCl (Thiamine Hcl 100 Mg Tablet) 100 mg PO DAILY [facility] Stop: 04/09/25 08:59 Last Admin: 04/06/25 08:01 Dose: 100 mg Home Medications ?Medication ?Instructions ?Recorded ?Confirmed ?Last Taken ?Type clonidine HCl 0.1 mg tablet 0.1 mg PO TID PRN Anxiety/ Sleep 04/06/25 04/06/25 Unknown History gabapentin 300 mg capsule 300 mg PO TID PRN Pain 04/0604/06/25 Unknown History hydroxyzine pamoate 50 mg capsule 50 mg PO TID PRN Anx iety/Sleep 04/06/25 04/06/25 Unknown History multivitamin 1 tab PO DAILY 04/06/2512/2604/05/25 History Physical Exam Vital Signs: Last Vital Signs Temp 98.3 F 04/06/25 09:52 Pulse 114 H 04/06/25 09:52 Resp 16 04/06/25 09:52 BP 110/73 04/06/25 09:52 Pulse Ox 96 04/06/25 09:52 O2 Del Method Room Air 04/06/25 09:52 BMI result Body Mass Index 23.0 Const General: no acute distress, alert and awake Resp Effort & Inspection: normal respiratory effort and able to speak in complete sentences Auscultation: clear to auscultation bilaterally Cardio Rate: regular rate Rhythm: regular rhythm Heart sounds: S1 normal heart sound present and S2 normal heart sound present GI Palpation (GI): Soft to palpation and nontender General: Yes no CVA tenderness Back/Spine/Pelvis Back: no CVA tenderness Skin Rashes: no rashes Trauma: abrasion (face 2/2 fall ) Extrem General: No edema Results Lab Results 04/06/25 09:38 04/06/25 09:38 Lab results: Chemistry 04/05/25 04/06/25 04/06/25 22:39 09:38 09:38 Sodium 120 L* 132 L 131 L Potassium 3.2 L 3.3 Carbon Dioxide 22 BUN 3 L Creatinine 0.59 Calcium 8.3 L D 04/06/25 04/06/25 09:38 09:38 Sodium Potassium 3.4 Carbon Dioxide 24 25 BUN 3 L Creatinine 0.71 Calcium 8.9 D Hematology 04/05/25 04/06/25 22:39 09:38 WBC 7.7 9.0 Hgb 10.5 L D 12.2 Plt Count 122 L D 168 D Assessment and Plan (1) Hyponatremia: Status: Acute Plan New, likely secondary to volume depletion from nauseas/vomiting from alcohol withdrawal recommend switching from D5 NS to D5 1/2 NS to slow rate of serum sodium correction down re-check BMP this afternoon- order in to check urine osm close I&O monitoring will continue to follow Discussed with Dr Kirkland. Procedures Date of Service Date of Service: 04/06/25
[2025-04-06 10:02] LABS: Anion Gap 11 (12-20); Carbon Dioxide 25 mmol/L (22-29); Chloride 98 mmol/L (96-108); Potassium 3.4 mmol/L (3.3-5.1); Sodium 131 mmol/L (135-145)
[2025-04-06 10:06] LABS: Alanine Aminotransferase 28 U/L (0-31); Albumin Level 4.8 g/dL (3.5-5.0); Alkaline Phosphatase 63 U/L (39-117); Anion Gap 13 (12-20); Aspartate Amino Transferase 80 U/L (5-31); Blood Urea Nitrogen 3 mg/dL (9-16); Calcium 8.9 mg/dL (8.4-10.2); Carbon Dioxide 24 mmol/L (22-29); Chloride 98 mmol/L (96-108); Creatinine Clr Calc Pharmacy 88.8; Estimated Glomerular Filt Rate > 60; Potassium 3.3 mmol/L (3.3-5.1); Sodium 132 mmol/L (135-145); Total Protein 7.6 g/dL (6.5-8.0)
[2025-04-06] MEDS: Nicotine 14 MG PATCH.TD24 TRANSDERMA (10:20)
--- NOTE | 2025-04-06 10:26 | PC.NURSE ---
pt dislodged her IV, new iv access placed to left hand and wrapped with kenya, pt also medicated with tylenol and nicotine patch
[2025-04-06] MEDS: Dextrose 5 % and 0.45 % NaCl 1,000 ML 100 ML IVCONT ×2 (10:56→19:55)
--- NOTE | 2025-04-06 10:57 | P.PNIM_ITS ---
Subjective Subjective Date of Service: 04/06/25 Interval History: Seen and evaluated today, states she is becoming more lucid and aware, said she didn't remember anything after fall. Says she is feeling better than she was last night, this is the first time something like this (seizure from withdrawal) has happened and it scared her, not feeling shakey, wants to do detox and get help. Review of Systems Review of Systems: Yes all other systems are reviewed and are negative Physical Exam 2 Exam: Exam: Gen: Appears be in no acute distress HEENT: NCAT, Moist mucosa. Abrasions, swelling noted on the forehead secondary to the fall. Pulmonary: CTA CVS: Normal S1-S2 Abdomen: BS+, Soft, Nontender Extremities: Warm well perfused Neuro: Alert and awake. Oriented x 4 Vital Signs: Vital Signs: Last Vital Signs Temp 98.3 F 04/06/25 09:52 Pulse 114 H 04/06/25 09:52 Resp 16 04/06/25 09:52 BP 110/73 04/06/25 09:52 Pulse Ox 96 04/06/25 09:52 O2 Del Method Room Air 04/06/25 09:52 BMI result Body Mass Index 23.0 Const: Orientation/consciousness: patient oriented x3 Neuro: General: patient oriented x3 and CN's II-XI intact bilaterally C ognition (Neuro): normal cognition Motor exam (neuro): Motor abnormalities not present Objective Data Active Medications Acetaminophen (Acetaminophen 325 Mg Tablet) 650 mg PO Q6H PRN PRN Reason: Pain, Mild 1-3,fever,headache Last Admin: 04/06/25 10:20 Dose: 650 mg Documented By: CY Calcium Carbonate (Calcium Carbonate 750 Mg Tab.Chew) 750 mg PO Q4H PRN PRN Reason: Heartburn Folic Acid (Folic Acid 1 Mg Tablet) 1 mg PO DAILY [facility] Stop: 04/09/25 08:59 Last Admin: 04/06/25 08:01 Dose: 1 mg Documented By: CY Heparin Sodium (Porcine) (Heparin Sodium,Porcine 5,000 Unit/Ml Vial) 5,000 unit SUBCUT Q8H [facility] Last Admin: 04/06/25 08:01 Dose: 5,000 unit Documented By: CY Dextrose/Sodium Chloride (D51/2ns) 1,000 mls @ 100 mls/hr IVCONT .Q10H [facility] Last Admin: 04/06/25 10:56 Dose: 100 mls/hr Documented By: CY Lorazepam (Lorazepam 2 Mg/Ml Vial) 1 mg IVPUSH Q4H PRN PRN Reason: Seizures Magnesium Hydroxide (Milk Of Magnesia 30 Ml Oral.Susp) 30 ml PO DAILY PRN PRN Reason: Constipation Melatonin (Melatonin 3 Mg Tablet) 6 mg PO BEDTIME PRN PRN Reason: Insomnia Multivitamins/Vitamin C (Multivitamin Tablet) 1 tab PO DAILY [facility] Stop: 04/09/25 08:59 Last Admin: 04/06/25 08:01 Dose: 1 tab Documented By: CY Nicotine (Nicotine 14 Mg Patch.Td24) 14 mg TRANSDERMA DAILY [facility] Last Admin: 04/06/25 10:20 Dose: 14 mg Documented By: CY Pantoprazole Sodium (Pantoprazole Sodium 40 Mg/10 Ml Vial) 40 mg IVPUSH DAILY@0630 [facility] Last Admin: 04/06/25 06:28 Dose: 40 mg Documented By: BRIGIDO Pharmacy Consult (Consult Rx Etoh Phenob Im/Po) 1 each MISCELLANE ONCE PRN; Protocol PRN Reason: Consult order Phenobarbital (Phenobarbital 15 Mg Tablet) 45 mg PO BID [facility] Stop: 04/07/25 21:01 Phenobarbital (Phenobarbital 15 Mg Tablet) 15 mg PO BID [facility] Stop: 04/09/25 21:01 Phenobarbital (Phenobarbital 15 Mg Tablet) 15 mg PO DAILY [facility] Stop: 04/11/25 09:01 Senna (Sennosides 8.6 Mg Tablet) 17.2 mg PO BEDTIME [facility] Sodium Chloride (0.9 % Sodium Chloride Flush 3 Ml Syringe) 3 ml IVFLUSH QSHIFT [facility] Last Admin: 04/06/25 08:01 Dose: Not Given Documented By: CY Non-Admin Reason: IV Running Thiamine HCl (Thiamine Hcl 100 Mg Tablet) 100 mg PO DAILY [facility] Stop: 04/09/25 08:59 Last Admin: 04/06/25 08:01 Dose: 100 mg Documented By: CY Labs 04/06/25 09:38 04/06/25 15:04 Labs: Laboratory Results - last 24 hr 08/0304/05/25 04/05/25 22:39 22:45 23:33 MCV 74.7 L MCH 27.4 MCHC 36.7 H RDW 15.4 Plt Count 122 L D MPV 8.4 L Immature Gran % (Auto) 0.5 H Neut % (Auto) 81.2 H Lymph % (Auto) 11.8 L Shelby % (Auto) 6.1 Eos % (Auto) 0.3 Baso % (Auto) 0.1 Lymph # (Auto) 0.9 L Shelby # (Auto) 0.5 Eos # (Auto) 0.0 Baso # (Auto) 0.0 Abs Immat Gran (auto) 0.04 H Absolute Neuts (auto) 6.3 Absolute Nucleated RBC 0.000 Nucleated RBC % (auto) 0.0 VBG pH 7.48 H VBG pCO2 36 VBG pO2 63 VBG HCO3 27 H VBG O2 Saturation 89.0 VBG Base Excess 4.3 Anion Gap 14 Estim Creat Clear Calc 106.9 Estimated GFR > 60 Random Glucose 107 Osmolality 246 L Calcium 8.3 L D Magnesium 1.4 L* Total Bilirubin 1.4 H AST 33 H ALT 19 Alkaline Phosphatase 56 Ammonia 25 Total Protein 6.5 Albumin 4.3 Beta HCG, Quant < 2 Ur Random Sodium < 20.0 Ur Random Potassium 5.0 Ur Random Chloride < 20.0 Salicylates < 5.0 L Urine Opiates Screen Not Detected Ur Buprenorphine Scrn Not Detected Ur Oxycodone Screen Not Detected Urine Methadone Screen Not Detected Urine Fentanyl Screen Not Detected Acetaminophen < 3 Ur Barbiturates Screen Not Detected Ur Phencyclidine Scrn Not Detected Ur Amphetamines Screen Not Detected U Benzodiazepines Scrn POSITIVE H Urine Cocaine Screen Not Detected U Marijuana (THC) Screen Not Detected Ethyl Alcohol < 10 04/06/25 04/06/25 09:38 09:38 MCV 77.4 L MCH 27.3 MCHC 35.3 H RDW 15.8 Plt Count 168 D MPV 8.2 L Immature Gran % (Auto) 0.3 Neut % (Auto) 82.3 H Lymph % (Auto) 10.1 L Shelby % (Auto) 7.2 Eos % (Auto) 0.1 Baso % (Auto) 0.0 Lymph # (Auto) 0.9 L Shelby # (Auto) 0.7 Eos # (Auto) 0.0 Baso # (Auto) 0.0 Abs Immat Gran (auto) 0.03 Absolute Neuts (auto) 7.4 Absolute Nucleated RBC 0.000 Nucleated RBC % (auto) 0.0 VBG pH VBG pCO2 VBG pO2 VBG HCO3 VBG O2 Saturation VBG Base Excess Anion Gap 13 11 L Estim Creat Clear Calc 88.8 Estimated GFR > 60 Random Glucose 142 H Osmolality Calcium 8.9 D Magnesium Total Bilirubin 1.1 H AST 80 H ALT 28 Alkaline Phosphatase 63 Ammonia Total Protein 7.6 Albumin 4.8 Beta HCG, Quant Ur Random Sodium Ur Random Potassium Ur Random Chloride Salicylates Urine Opiates Screen Ur Buprenorphine Scrn Ur Oxycodone Screen Urine Methadone Screen Urine Fentanyl Screen Acetaminophen Ur Barbiturates Screen Ur Phencyclidine Scrn Ur Amphetamines Screen U Benzodiazepines Scrn Urine Cocaine Screen U Marijuana (THC) Screen Ethyl Alcohol Assessment and Plan (1) Hyponatremia: Status: Acute Plan 39-year-old female with a past medical history of anxiety, alcohol use disorder presented to the hospital via EMS after ?witnessed seizure and fall. Seizure, Alcohol use disorder- Likely in setting of alcohol withdrawal as patient was actively trying to stop drinking Hyponatremia- 120 on arrival, repeat this am 131, continue IVF D5 NS at 50 cc/hour Seizure precautions CIWA, phenobarbital protocol, Ativan p.r.n. for seizure Thiamine folate and multivitamins Neurology: recommends alcohol withdrawal protocol, obtain an EEG, continue IVF and thiamine folate, B complex vitamins. Social work consult Hyponatremia- Likely related to withdrawal subsequent vomiting and diarrhea. Replace with on D5 NS at 50 cc/hour 131 this am Serial BMP Nephrology: New, likely secondary to volume depletion from nauseas/vomiting from alcohol withdrawal recommend switching from D5 NS to D5 1/2 NS to slow rate of serum sodium correction down, re-check BMP this afternoon- order in to check urine osm close I&O monitoring nephrology will continue to follow Thrombocytopenia, resolved Platelets were noted to be 122 on presentation, now 168 DVT prophylaxis: SubQ heparin Code status: Full code Quality Stroke Does the patient have a stroke diagnosis?: No VTE Prior VTE?: No VTE Risk Level:: Medical - moderate - high VTE Device Contraindication: Treatment Not Indicated VTE Drug Contraindication: N/A - Med Ordered
[2025-04-06 12:00] VITALS: BP 138/93; PULSE 127; RESP 20; TEMP 36.8; O2SAT 98
[2025-04-06 13:53] VITALS: BMI 23.9
[2025-04-06 15:28] LABS: Anion Gap 14 (12-20); Carbon Dioxide 25 mmol/L (22-29); Chloride 98 mmol/L (96-108); Potassium 3.6 mmol/L (3.3-5.1); Sodium 133 mmol/L (135-145)
[2025-04-06 16:00] VITALS: BP 108/65; PULSE 96; RESP 16; TEMP 36.8; O2SAT 98
[2025-04-06 19:26] VITALS: BP 104/72; PULSE 103; RESP 18; TEMP 36.8; O2SAT 99
--- NOTE | 2025-04-06 22:38 | PC.NURSE ---
At approximately 2155, T monitor notified this RN that patient was observed vaping in her room. manager transfer and this senior underwriter approached patient and , security called to bedside to complete room search. 2 vapes found in patient's glasses case. Glasses case was taken and put into patient belongings, educated her that she could have them back upon discharge. Patient notified this RN that she would like to leave AMA. Provider and spring assembler supervisor notified.
--- NOTE | 2025-04-06 23:18 | PM.EVENT ---
Event Note Date of Service: 04/06/25 Event Note: The nurse reported that patient wanted to leave. Patient states that she wants to sign against medical advice and go home as she has something important to take care of at home. She is awake, alert and oriented x4. Does have capacity. Understands the risks of leaving against medical advice. Patient states she will follow with PCP to repeat blood work including sodium levels. Time Spent With Patient Time: Total time managing care of this patient today ____ minutes.
--- NOTE | 2025-04-07 07:13 | PM.DS ---
DS: Providers Provider Date of Service: 04/06/25 Date of admission: 04/06/25 01:20 Date of discharge: 04/06/25 Primary care physician: None Physician Consults: 04/06/25 01:08 Consult to Nephrology Routine Consulting Provider: [facility] Reason for consultation: hyponatremia Consult to Neurology Routine Consulting Provider: [facility] Reason for consultation: seizure DS: Diagnosis Discharge Diagnosis (1) Hyponatremia: Status: Acute DS: Summary Hospital Course Hospital Course: patient was being treated for seizure related to hyponatremia, and aldohol withdrawal and left AMA, I was not present physically at the the she left... see additional documentation by Dr. Frost Final diagnoses Seizure Hyponatremia Alcohol withdrawal Time Attestation Discharge Coordination Time (in mins): 20 Quality: Safe Use of Opioids Does Pt have an Active Cancer Diagnosis on the Problem List?: No Quality: Stroke Does the patient have a stroke diagnosis?: No Physical Exam Vital Signs: Vital Signs: Last Vital Signs Temp 98.2 F 04/06/25 19:26 Pulse 103 H 04/06/25 19:26 Resp 18 04/06/25 19:26 BP 104/72 04/06/25 19:26 Pulse Ox 99 04/06/25 19:26 O2 Del Method Room Air 04/06/25 19:26 BMI result Body Mass Index 23.9 DS: Data Data Completed and Pending Labs on day of discharge: Laboratory Results - last 24 hr 04/05/25 04/06/25 04/06/25 22:39 09:38 09:38 WBC 9.0 RBC 4.47 Hgb 12.2 Hct 34.6 L D MCV 77.4 L MCH 27.3 MCHC 35.3 H RDW 15.8 Plt Count 168 D MPV 8.2 L Immature Gran % (Auto) 0.3 Neut % (Auto) 82.3 H Lymph % (Auto) 10.1 L [place] % (Auto) 7.2 Eos % (Auto) 0.1 Baso % (Auto) 0.0 Lymph # (Auto) 0.9 L [place] # (Auto) 0.7 Eos # (Auto) 0.0 Baso # (Auto) 0.0 Abs Immat Gran (auto) 0.03 Absolute Neuts (auto) 7.4 Absolute Nucleated RBC 0.000 Nucleated RBC % (auto) 0.0 Sodium 132 L 131 L Potassium 3.3 Chloride Carbon Dioxide Anion Gap BUN Creatinine Estim Creat Clear Calc Estimated GFR Random Glucose Calcium Total Bilirubin AST ALT Alkaline Phosphatase Total Protein Albumin Prolactin 13.3 04/06/25 04/06/25 04/06/25 09:38 09:38 09:38 WBC RBC Hgb Hct MCV MCH MCHC RDW Plt Count MPV Immature Gran % (Auto) Neut % (Auto) Lymph % (Auto) [place] % (Auto) Eos % (Auto) Baso % (Auto) Lymph # (Auto) [place] # (Auto) Eos # (Auto) Baso # (Auto) Abs Immat Gran (auto) Absolute Neuts (auto) Absolute Nucleated RBC Nucleated RBC % (auto) Sodium Potassium 3.4 Chloride 98 98 Carbon Dioxide 24 25 Anion Gap 13 BUN Creatinine Estim Creat Clear Calc Estimated GFR Random Glucose Calcium Total Bilirubin AST ALT Alkaline Phosphatase Total Protein Albumin Prolactin 04/06/25 04/06/25 09:38 15:04 WBC RBC Hgb Hct MCV MCH MCHC RDW Plt Count MPV Immature Gran % (Auto) Neut % (Auto) Lymph % (Auto) [place] % (Auto) Eos % (Auto) Baso % (Auto) Lymph # (Auto) [place] # (Auto) Eos # (Auto) Baso # (Auto) Abs Immat Gran (auto) Absolute Neuts (auto) Absolute Nucleated RBC Nucleated RBC % (auto) Sodium 133 L Potassium 3.6 Chloride 98 Carbon Dioxide 25 Anion Gap 11 L 14 BUN 3 L Creatinine 0.71 Estim Creat Clear Calc 88.8 Estimated GFR > 60 Random Glucose 142 H Calcium 8.9 D Total Bilirubin 1.1 H AST 80 H ALT 28 Alkaline Phosphatase 63 Total Protein 7.6 Albumin 4.8 Prolactin Discharge Plan Discharge Anticipated Discharge Date/Time: 04/06/25 23:11 Patient Disposition: Left Against Medical Advice Discharge Diagnosis: seizure Referrals: Physician,None [Primary Care Provider, Medical] - 1 Week Discharge Medications: No Action multivitamin Tablet 1 tab PO DAILY clonidine HCl 0.1 mg tablet 0.1 mg PO TID PRN (Reason: Anxiety/Sleep) hydroxyzine pamoate 50 mg capsule 50 mg PO TID PRN (Reason: Anxiety/Sleep) gabapentin 300 mg capsule 300 mg PO TID PRN (Reason: Pain) Discharge Orders: Discharge Order (Routine); Ordered 04/06/25 Ordered By: Madi Frost Print Language: Japanese Care Plan Goals: left AMA Health Concerns: left AMA Plan of Treatment: left AMA Assessment: left AMA Discharge Date/Time: 04/06/25 23:36
--- NOTE | 2025-04-07 09:41 | P.CDIM_ITS ---
PROVIDER RESPONSE TEXT: To clarify, the appropriate diagnosis supported by the clinical indicators: Hypomagnesemia: suspected QUERY TEXT: PHYSICIAN'S DOCUMENTATION REQUEST Date of Query: 04/06/2025 12:44 PM EDT Patient Name: Zonia Marks Admit Date: 04/06/2025 Dear Joseph You MD, A review of the medical record indicates additional documentation may be needed. Please review below and update the documentation accordingly. Clinical Indicators: LABS: 1.4 L IV Magnesium Sulfate Based on the above, is there a diagnosis that correlates with these findings? Hypomagnesemia resolved, possible, suspected etc. Labs indicate a diagnosis of (please specify) Other (explain) Clinically unable to determine (explain) Thank you, Alix Weathers, CCS, CDIS Use of terms such as suspected, likely, concern for, or probable (associated with a specific diagnosis that is being evaluated, monitored, or treated as if it exists) are acceptable and can be coded in the inpatient setting, when documented at the time of discharge. Please use your independent medical judgment in providing your response. THIS QUERY IS PART OF THE PERMANENT MEDICAL RECORD
== END 2025-04-06 23:36 | disposition left against medical advice (07) | DRG 894 ==
LOC: HO.ED 04-06 01:21 → HO.EDOVER 04-06 01:53 → HO.IMC 04-06 11:46
PROVIDERS: Admitting Provider Hospitalist; Emergency Provider Emergency Medicine; Visit Provider Internal Medicine
DX: F10.139 Alcohol abuse with withdrawal, unspecified (principal); E87.1 Hypo-osmolality and hyponatremia; R56.9 Unspecified convulsions; D69.6 Thrombocytopenia, unspecified; E83.42 Hypomagnesemia; Z79.899 Other long term (current) drug therapy
CPT/HCPCS: 36415; 70450; 70486; 72125; 80051; 80053; 80143; 80179; 80307; 82140; 82436; 82803; 83735; 83930; 84133; 84146; 84300; 84702; 85025; 93005; 99285; J1644; J2250; J2470; J2560; J3475

== ENCOUNTER → 2025-04-05 21:33 | Outpatient (BNV) | payer BC, SELFPAY | PROVIDERS: Admitting Provider Hospitalist; Emergency Provider Emergency Medicine; Visit Provider Internal Medicine | DX: R94.31 Abnormal electrocardiogram [ECG] [EKG] (principal); R56.9 Unspecified convulsions; F10.939 Alcohol use, unspecified with withdrawal, unspecified | CPT/HCPCS: 93010 ==

== ENCOUNTER → 2025-04-05 22:08 | Outpatient (BNV) | payer OTHER, SELFPAY | PROVIDERS: Emergency Provider Emergency Medicine; Visit Provider Radiology Diagnostic Radiology | DX: S09.93XA Unspecified injury of face, initial encounter (principal); F10.20 Alcohol dependence, uncomplicated | CPT/HCPCS: 70450; 70486; 72125 ==

== ENCOUNTER → 2025-04-06 01:20 | Outpatient (BNV) | payer BC, SELFPAY | PROVIDERS: Admitting Provider Hospitalist; Emergency Provider Emergency Medicine; Visit Provider Psychiatry & Neurology Neurology | DX: R56.9 Unspecified convulsions (principal) | CPT/HCPCS: 99232 ==

== ENCOUNTER → 2025-04-06 01:20 | Outpatient (BNV) | payer BC, SELFPAY | PROVIDERS: Admitting Provider Hospitalist; Emergency Provider Emergency Medicine; Visit Provider Student in an Organized Health Care Education/Training Program | DX: E87.1 Hypo-osmolality and hyponatremia (principal) | CPT/HCPCS: 99238; 99429; 99499 ==

== ENCOUNTER → 2025-04-06 01:20 | Outpatient (BNV) | payer BC, SELFPAY | PROVIDERS: Admitting Provider Hospitalist; Emergency Provider Emergency Medicine; Visit Provider Nurse Practitioner Family | DX: E87.1 Hypo-osmolality and hyponatremia (principal) | CPT/HCPCS: 99232 ==

== ENCOUNTER 2025-04-25 12:52 | Emergency (ER) | payer MEDICAID, SELFPAY ==
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
[2025-04-25 13:05] VITALS: BP 110/74; BP 128/70; PULSE 111; PULSE 120; RESP 16; TEMP 37; O2SAT 96; O2SAT 97; BMI 24.6
--- NOTE | 2025-04-25 13:28 | ECG_ITS ---
Test Reason : aams Blood Pressure : */* mmHG Vent. Rate : 102 BPM Atrial Rate : 102 BPM P-R Int : 144 ms QRS Dur : 94 ms QT Int : 346 ms P-R-T Axes : 72 65 60 degrees QTcB Int : 450 ms Sinus tachycardia Incomplete right bundle branch block Borderline ECG When compared with ECG of 05-Apr-2025 21:33, No significant changes seen Referred By: Robin Diaz Electronically Signed By: TREVON PEREZ
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
[2025-04-25 13:55] LABS: Appearance Urine Clear; Glucose Urine UA Negative (Negative); PH 5.5 (5.0-9.0); Specific Gravity - Urine 1.010 (1.005-1.025); UMIC TRIGGER UACC YES
[2025-04-25 13:56] LABS: UPreg QC Valid YES
[2025-04-25] MEDS: Nicotine 7 MG PATCH.TD24 TRANSDERMA (13:57)
--- NOTE | 2025-04-25 13:57 | MHC.EDTECH ---
attempted to do Labs/ekg pt stated she refuses, she thought the Doctor told her she would be discharged. RN/ Md notified.
[2025-04-25 14:06] LABS: Cannabinoid Screen Urine Not Detected (Not Detect)
[2025-04-25 14:38] LABS: MANUAL DIFF FLAG NO
[2025-04-25 14:43] LABS: Hematocrit 31.8 % (37.0-47.0); Hemoglobin 10.4 g/dl (12.0-16.0); Imm Gran Abs Auto 0.02 X10*3/uL (0.00-0.03); Imm Gran Pct Auto 0.3 % (0.0-0.4); Lymphocytes Absolute Auto 2.5 X10*3/uL (1.2-4.9); Mean Corpuscular HGB Conc 32.7 g/dl (31.0-35.0); Mean Corpuscular Hemoglobin 26.3 pg (27.0-33.0); Mean Corpuscular Volume 80.5 fL (80.0-98.0); NRBC Abs Auto 0.000 X10*3/uL (0.0-0.012); NRBC Pct Auto 0.0 /100WBC (0.0-0.2); Platelet Count 335 X10*3/uL (160-400); Red Blood Count 3.95 X10*6/uL (4.20-5.50); White Blood Count 6.5 X10*3/uL (4.8-10.8)
[2025-04-25 14:44] LABS: INTERNATIONAL NORM RATIO 1.0 (0.9-1.1); Prothrombin Time 11.1 SEC (10.9-12.4)
[2025-04-25 14:53] VITALS: BP 104/70; PULSE 107; RESP 18; TEMP 36.6; O2SAT 99
[2025-04-25 14:55] LABS: Alanine Aminotransferase 20 U/L (0-31); Albumin Level 4.4 g/dL (3.5-5.0); Alkaline Phosphatase 47 U/L (39-117); Anion Gap 13 (12-20); Aspartate Amino Transferase 23 U/L (5-31); Blood Urea Nitrogen 9 mg/dL (9-16); Calcium 8.2 mg/dL (8.4-10.2); Carbon Dioxide 23 mmol/L (22-29); Chloride 103 mmol/L (96-108); Creatinine Clr Calc Pharmacy 92.1; Estimated Glomerular Filt Rate > 60; Magnesium 2.0 mg/dL (1.6-2.6); Potassium 3.4 mmol/L (3.3-5.1); Sodium 136 mmol/L (135-145); Total Protein 6.6 g/dL (6.5-8.0)
[2025-04-25 15:01] LABS: Acetaminophen LAB < 3 mcg/mL (<30); Salicylate < 5.0 mg/dL (15-30)
[2025-04-25 15:03] LABS: Troponin-I High Sensitivity < 2.7 ng/L (<3.5-17.0)
--- NOTE | 2025-04-25 16:38 | MHC.CARE ---
Recovery assessment complete, faxed to [facility] at [phone]. Unclear bed availability.
[2025-04-25 18:27] VITALS: PULSE 101; RESP 19
[2025-04-25 18:35] VITALS: BP 114/64; PULSE 108; RESP 16; O2SAT 96
--- NOTE | 2025-04-25 21:14 | PC.NURSE ---
expressed desire to leave. denies SI/HI. walks quite steadily to bathroom. states she feels safe to go home. does not want to wait here. states she typically withdrawals within a couple hours of last beverage. denies current symptoms. eats independently. aelert and oriented. MAXI Barber notified
[2025-04-25 21:56] VITALS: BP 122/77; PULSE 115; RESP 16; TEMP 36.9; O2SAT 99
[2025-04-25 22:40] VITALS: BP 122/77; PULSE 104; RESP 16; TEMP 36.9; O2SAT 99
== END 2025-04-25 22:41 | disposition home or self-care (01) ==
PROVIDERS: Physician Assistant; Emergency Provider Emergency Medicine
DX: F10.129 Alcohol abuse with intoxication, unspecified (principal); F10.10 Alcohol abuse, uncomplicated; Y90.8 Blood alcohol level of 240 mg/100 ml or more; F33.1 Major depressive disorder, recurrent, moderate; D64.9 Anemia, unspecified; R41.82 Altered mental status, unspecified; R00.0 Tachycardia, unspecified; Z03.818 Encounter for observation for suspected exposure to other biological agents ruled out; Z79.899 Other long term (current) drug therapy; Z63.0 Problems in relationship with spouse or partner; Z51.81 Encounter for therapeutic drug level monitoring
CPT/HCPCS: 36415; 70450; 80053; 80143; 80179; 80307; 81001; 81025; 83735; 84484; 85025; 85610; 93005; 99285; S9485

== ENCOUNTER → 2025-04-25 13:28 | Outpatient (BNV) | payer SELFPAY | PROVIDERS: Emergency Provider Emergency Medicine; Visit Provider Radiology Diagnostic Radiology | DX: R41.82 Altered mental status, unspecified (principal) | CPT/HCPCS: 70450 ==

== ENCOUNTER → 2025-04-25 13:28 | Outpatient (BNV) | payer MEDICAID, SELFPAY | PROVIDERS: Emergency Provider Emergency Medicine; Visit Provider Internal Medicine | DX: I45.10 Unspecified right bundle-branch block (principal); R00.0 Tachycardia, unspecified | CPT/HCPCS: 93010 ==